=== PATIENT | male | born 1985 | race Caucasian/White ===

== ENCOUNTER 2016-05-27 14:09 | Emergency (ER) | payer BC ==
[2016-05-27 14:43] VITALS: BP 119/77
--- NOTE | 2016-05-27 14:58 | UC ---
Throat Pain/Nasal Guicho HPI - HPI Summary HPI Summary: sinus pain/pressure/green drainage for 4 days. Headache, chills, malaise. Had URI for past few weeks, started to get better, then got worse. - History of Current Complaint Chief Complaint: UCRespiratory Stated Complaint: SINUS COMPLAINT Time Seen by Provider: 05/27/16 14:37 Hx Obtained From: Patient Onset/Duration: Gradual Onset Severity: Moderate Cough: Nonproductive Associated Signs & Symptoms: Positive: Sinus Discomfort, Nasal Discharge. Negative: Dysphagia, Drooling, Wheezing, Hoarseness, Fever Related History: Smoking - Epiglottits Risk Factors Epiglottis Risk Factors: Negative - Allergies/Home Medications Allergies/Adverse Reactions: Allergies Allergy/AdvReac Type Severity Reaction Status Date / Time Eggs or Egg-derived Products Allergy Swelling Verified 05/27/16 14:38 Flu shots due to egg Allergy Anaphylatic Uncoded 05/27/16 14:38 component Shock foods: fresh fruit Allergy Swelling Uncoded 05/27/16 14:38 Of Face,Lips,& Throat seasonal and environmental Allergy Congestion Uncoded 05/27/16 14:38 allergy PMH/Surg Hx/FS Hx/Imm Hx Previously Healthy: Yes - Surgical History Surgical History: Yes Surgery Procedure, Year, and Place: Left Foot and Ankle Fracture, ~2010 - Family History Known Family History: Positive: Hypertension - Social History Occupation: Employed Full-time - tow-truck crane operator Lives: With Family Alcohol Use: Rare Substance Use Type: None Smoking Status (MU): Light Every Day Tobacco Smoker Type: Cigarettes Amount Used/How Often: 1/2 PPD Length of Time of Smoking/Using Tobacco: 5 Years Have You Smoked in the Last Year: Yes - Immunization History Most Recent Tetanus Shot: 2009, and 03/2011 Review of Systems Constitutional: Negative Skin: Negative Eyes: Negative ENT: Nasal Discharge, Other - sinus pain Respiratory: Negative Cardiovascular: Negative Gastrointestinal: Negative Genitourinary: Negative Motor: Negative Neurovascular: Negative Musculoskeletal: Negative Neurological: Headache Psychological: Negative All Other Systems Reviewed And Are Negative: Yes Physical Exam Triage Information Reviewed: Yes Appearance: Well-Appearing, No Pain Distress, Well-Nourished Vital Signs: Initial Vital Signs Temp 98.8 F 05/27/16 14:36 Pulse 68 05/27/16 14:36 Resp 16 05/27/16 14:36 BP 119/77 05/27/16 14:36 Pulse Ox 98 05/27/16 14:36 Vital Signs Reviewed: Yes Eye Exam: Normal ENT: Positive: Pharynx normal, TM dull - both TM's scarred with fluid behind them. Negative: Trismus, Muffled/hoarse voice Neck exam: Normal Respiratory Exam: Normal Cardiovascular Exam: Normal Musculoskeletal Exam: Normal Neurological Exam: Normal Psychological Exam: Normal Skin Exam: Normal Throat Pain/Nasal Course/Dx - Differential Dx/Diagnosis Differential Diagnosis/HQI/PQRI: Sinusitis, URI Provider Diagnoses: sinusitis Discharge - Discharge Plan Condition: Stable Disposition: HOME Prescriptions: Amoxicillin/Clavulanate TAB* [Augmentin TAB 875*] 875 mg PO BID #20 tab Patient Education Materials: Sinusitis (ED) Referrals: Jonathon Ortega MD [Primary Care Provider] -
== END 2016-05-27 15:03 | disposition home or self-care (01) ==
LOC: UCCORT 14:09
DX: J32.9 Chronic sinusitis, unspecified (principal); F17.210 Nicotine dependence, cigarettes, uncomplicated
CPT/HCPCS: 99212; G0463